=== PATIENT | female | born 1950 | race Caucasian/White ===

== ENCOUNTER 2021-10-16 20:03 | Emergency (ER) | payer MEDICARE, OTHER, SELFPAY ==
--- NOTE | 2021-10-16 20:08 | CTR_ITS ---
PROCEDURE INFORMATION: Exam: CT Cervical Spine Without Contrast Exam date and time: 10/16/2021 8:24 PM Age: 71 years old Clinical indication: Injury or trauma; Fall; Blunt trauma; Injury details: Patient tripped coming up some steps, loc is not certain; Prior surgery; Surgery date: 6+ months; Surgery type: Lens implants TECHNIQUE: Imaging protocol: Computed tomography of the cervical spine without contrast. Sagittal, oblique axial, and coronal reformatted images were created and reviewed. Radiation optimization: All CT scans at this facility use at least one of these dose optimization techniques: automated exposure control; mA and/or kV adjustment per patient size (includes targeted exams where dose is matched to clinical indication); or iterative reconstruction. COMPARISON: No relevant prior studies available. RADIATION DOSE METRICS: Total DLP (mGy-cm): 396.5 FINDINGS: Bones/joints: No evidence for an epidural hematoma. Vertebral body height is maintained. No subluxation. Bones are diffusely osteopenic. Straightening of the cervical spine. This may be due to positioning versus muscle spasm. No acute fracture. Discs/Spinal canal/Neural foramina: Multilevel degenerative changes of varying severity in the visualized spine. Mild spinal canal stenosis at C3-C4 through C6-C7. Multilevel foraminal stenosis of varying severity in the visualized spine. Lungs: Visualized lungs are clear. Vasculature: Atherosclerotic changes in the visualized arteries. Soft tissues: No soft tissue swelling. No radiopaque foreign body. CT/CT cervical spin wo con* [id number] IMPRESSION: 1. No acute fracture of the cervical spine. 2. Multilevel degenerative changes of varying severity in the visualized spine. 3. Mild spinal canal stenosis at C3-C4 through C6-C7. Multilevel foraminal stenosis of varying severity in the visualized spine. 4. Incidental/nonacute findings are listed in the report.
--- NOTE | 2021-10-16 20:08 | CTR_ITS ---
PROCEDURE INFORMATION: Exam: CT Head Without Contrast Exam date and time: 10/16/2021 8:20 PM Age: 71 years old Clinical indication: Injury or trauma; Fall; Blunt trauma (contusions or hematomas); Prior surgery; Surgery date: 6+ months; Surgery type: Lens implants TECHNIQUE: Imaging protocol: Computed tomography of the head without contrast. Sagittal and coronal reformatted images were created and reviewed. Radiation optimization: All CT scans at this facility use at least one of these dose optimization techniques: automated exposure control; mA and/or kV adjustment per patient size (includes targeted exams where dose is matched to clinical indication); or iterative reconstruction. COMPARISON: No relevant prior studies available. RADIATION DOSE METRICS: Total DLP (mGy-cm): 617.43 FINDINGS: Brain: No acute intracranial hemorrhage. No acute infarct. No intra-axial or extra-axial masses. Rich-white matter differentiation is preserved. No cerebral edema. No extra-axial fluid collections. No midline shift. No evidence for Chiari 1 malformation. Mild atrophy of the brain parenchyma. Mildly decreased attenuation in the deep white matter, consistent with mild chronic microangiopathic change. Right basal ganglia calcifications. Cerebral ventricles: No hydrocephalus. Paranasal sinuses: Visualized paranasal sinuses are clear. Mastoid air cells: Visualized mastoid air cells are clear. Orbital cavities: No acute abnormality in the visualized orbits. Bones/joints: No acute fracture. Soft tissues: No acute abnormality of the extracranial soft tissues. CT/CT head wo con* [id number] IMPRESSION: 1. No acute abnormality of the brain. 2. Mild atrophy of the brain parenchyma. 3. Mild chronic white matter microangiopathic change. 4. Incidental/nonacute findings are listed in the report.
[2021-10-16 20:10] VITALS: BP 121/76; PULSE 92; RESP 16; TEMP 36.3; O2SAT 94
--- NOTE | 2021-10-16 21:54 | W.ED.FALL ---
HPI - Fall General: Chief Complaint: Fall Stated Complaint: fall/right arm weakness & injury/vomiting Time Seen by Provider: 10/16/21 21:53 History of Present Illness: Ms. Milton is a 71-year-old lady without significant past medical history who presents to the emergency department due to fall. She reports that she was walking inside and does not recall exactly why she fell but thinks that she must of tripped. She fell forward and reached out with her right arm. She is unsure if she lost consciousness. She did have post fall vomiting and reported that she seemed confused/disoriented though this is improved. Currently only endorses arm pain. Intensity is moderate. Quality is aching and worse with movement. No other specific changes in health, exacerbating, or alleviating factors identified. Onset (ago): minute(s) Fall from: standing Place fall occurred: home Loss of consciousness: Unsure Prolonged down time: no Severity: moderate Quality: aching Review of Systems General: Reports: 10 or more systems reviewed and unremarkable except in HPI and below PFSH ED PFSH: Medical History No significant past medical history Surgical History No significant past surgical history Family History Denies family history of Clotting disorder Bleeding disorder Social History Smoking and tobacco status: never smoked Physical Exam Const: COMMON NORMALS: alert GENERAL APPEARANCE: cooperative and well developed HENMT: COMMON NORMALS: normocephalic and atraumatic HEAD & SCALP: normocephalic and atraumatic OTHER: No yousif signs or raccoon eyes. No hemotympanum. No otorrhea or rhinorrhea. Jaw alignment normal. Dentition baseline. No obvious bony step-offs. No septal hematoma. No evidence of ocular entrapment. Eye: COMMON NORMALS: conjunctivae normal CONJUNCTIVA: Yes conjunctivae normal SCLERA: sclerae normal Neck/C-Spine: COMMON NORMALS: supple GENERAL: Yes trachea midline Resp: COMMON NORMALS: normal respiratory effort EFFORT & INSPECTION: Yes able to speak in complete sentences Cardio: COMMON NORMALS: regular rate and regular rhythm RATE: regular rate RHYTHM: regular rhythm GI: COMMON NORMALS: Soft to palpation PALPATION: Yes Soft to palpation, No Tenderness to palpation present (GI), No Guarding due to palpation present (GI) and No Rigid due to palpation Back/Pelvis: COMMON NORMALS: no thoracic nor lumbar tenderness Extremity: NARRATIVE EXTREMITY EXAM: Right elbow held approximately 90 degrees flexion localized ecchymosis and swelling. Tenderness to palpation for distal CMS intact. GENERAL: Yes normal exam except as noted and No edema Neuro: COMMON NORMALS: moves all extremities SENSORIUM/ORIENTATION: Yes alert and No Orientation impaired Psych: COMMON NORMALS: mental status grossly normal and Normal thought process present THOUGHT PROCESS: Normal thought process present Skin: NARRATIVE SKIN EXAM: Irregular skin tear with L-shaped roughly 4 cm x 2 cm to right posterior hand. No involvement overlying joints. Bleeding controlled. Distal CMS intact. Procedures Laceration Laceration 1: Site: hand Side (If applicable): right Size (cm): 4 Description: irregular (skin tear roughly L shaped) Depth: simple, single layer Pre-repair: wound explored, irrigated extensively and deep structures intact Skin layer closed with: other (steri strips) Course ED course: - Patient was seen and evaluated by me at bedside - Patient placed on cardiac monitors, IV access obtained - Initial evaluation notable for exam as above. Head to toe exam performed. - Labs and xrays personally interpreted by me. EKG notable for sinus rhythm with nonspecific ST segment abnormalities. No STEMI. - Patient reports up-to-date Tdap - Imaging notable for negative head and neck CT for acute traumatic injury or obvious cause of fall. Right radial head fracture with displacement and possible ulna coronoid process fracture. - X-rays sent to orthopedic on-call for review, given injury we both agree that attempted closed reduction is not likely to be fruitful or indicated in this situation. Plan to place patient in sling and have outpatient orthopedic follow-up. - Upon serial reexamination after treatment the patient was improved. Given pharmacy is closed I will dispense overnight doses of oxycodone 3 x 5 mg to be taken every 4 hours as needed - Based on patient history, evaluation, and testing as interpreted the most likely cause of the patient's condition is fall with injuries of seizure and radial head fracture with displacement. - The results of ED evaluation were discussed with the patient including prescriptions and/or symptomatic cares (if applicable) including appropriate and responsible use, followup plan, and return precautions. The patient verbalized understanding and felt safe for discharge. - Patient discharged in satisfactory condition. Note: Click bubbles or prepopulated salomon in note writing are used for assistance with data collection and billing and are inherently more limited than narrative and other text portions of this note. Please use narrative for additional clinical history and defer to narrative/free test for any case of contradictory information. If information appears in only free text or click bubble it should be considered present or absent as reported. Please contact note rfp writer for clarifications of clinical information or contradictory information. MDM is a brief summary, contradictory or erroneous seeming information should be clarified and full note should be reviewed. Vital Signs: Vital signs: Vital Signs Temperature 97.3 F L 10/16/21 20:10 Pulse Rate 77 10/17/21 00:35 Respiratory Rate 16 10/17/21 00:35 Blood Pressure 101/67 10/17/21 00:35 Pulse Oximetry 95 10/17/21 00:35 MDM - Fall Medical Decision Making 71-year-old lady without significant past medical history presenting due to fall of somewhat unclear circumstances. Patient found to have suspected nondisplaced ulna fracture and displaced radial head fracture. Discussed with orthopedics who reviewed x-rays. Plan to have outpatient management with likely operative intervention. Skin tear repaired with Steri-Strips. Satisfactory for outpatient management. Medical Records I reviewed the patient's medical records. Lab Data I reviewed the patient's lab results. Radiology Impressions Cervical Spine CT 10/16/21 20:08 IMPRESSION: 1. No acute fracture of the cervical spine. 2. Multilevel degenerative changes of varying severity in the visualized spine. 3. Mild spinal canal stenosis at C3-C4 through C6-C7. Multilevel foraminal stenosis of varying severity in the visualized spine. 4. Incidental/nonacute findings are listed in the report. Head CT 10/16/21 20:08 IMPRESSION: 1. No acute abnormality of the brain. 2. Mild atrophy of the brain parenchyma. 3. Mild chronic white matter microangiopathic change. 4. Incidental/nonacute findings are listed in the report. Elbow X-Ray 10/16/21 22:08 IMPRESSION: 1. Subtle cortical irregularities at the radial head and at the coronoid process of the ulna suspicious for nondisplaced fractures. 2. Moderate elbow joint effusion. 3. Mild soft tissue swelling posterior to the distal humerus. 4. Incidental/nonacute findings are listed in the report. Forearm X-Ray 10/16/21 22:08 IMPRESSION: 1. There is a fracture of the right radial head with 90 degrees of lateral angulation of the radial head with respect to the neck of the radius. 2. Mild soft tissue swelling posterior to the distal humerus. 3. Moderate elbow joint effusion. Hand X-Ray 10/16/21 22:08 IMPRESSION: 1. No acute fracture of the right hand. Followup imaging recommended in 7-14 days if clinical concern for fracture persists. 2. Incidental/nonacute findings are listed in the report. Discharge Plan Discharge Patient Disposition: Home Clinical Impression: Fall, Closed fracture of radial head, Skin tear Condition: Stable Prescriptions: New ondansetron 4 mg tablet,disintegrating 4 mg PO Q8H PRN (Reason: nausea and vomiting) Qty: 15 0RF oxycodone 5 mg tablet 5 mg PO Q4H PRN (Reason: pain) Qty: 30 0RF polyethylene glycol 3350 [Miralax] 17 gram powder in packet 17 g PO BID Qty: 30 0RF No Action hydrocodone-acetaminophen 5-325 mg tablet 1 tab PO Q4H PRN (Reason: pain) 7 Days Qty: 30 0RF ondansetron HCl 4 mg tablet 4 mg PO Q8H PRN (Reason: nausea and vomiting) 5 Days Qty: 14 0RF hydrocodone-acetaminophen 5-325 mg tablet 1 tab PO Q4H Qty: 30 0RF Discharge Orders: Discharge ED (Routine); Ordered 10/17/21 Ordered By: Jamey Miller Referrals: Sage Pierre MD [Primary Care Provider] - Discharge Diet: Usual diet Discharge Activity: Limit activity as instructed Activity Restrictions/Additional Instructions: Thank you for visiting the emergency department. You were seen and evaluated for fall with elbow injury. You are found to have a skin tear which was repaired with Steri-Strips as well as a radial head fracture. The radial head fracture requires follow-up with orthopedics. I will message case management however please call if you do not hear from them by Wednesday afternoon. Please wear sling and limit range of motion until follow-up. Please keep skin tear area clean and dry. You will be given a prescription for pain medication, you may take Tylenol in addition of this. Opioids can cause difficulty with balance and cause sedation, please be cautious regarding this. Additionally a common side effect is constipation. Please follow-up with your primary care provider. Return to the emergency department for worsening symptoms or anything else that you are concerned about and feel needs emergency department evaluation. Coding Level of Care Code ED [employer]ician for [facility] [employer]
--- NOTE | 2021-10-16 22:08 | XRR_ITS ---
PROCEDURE INFORMATION: Exam: XR Right Elbow Exam date and time: 10/16/2021 10:15 PM Age: 71 years old Clinical indication: Pain; Lower or forearm; Patient HX: Lateral elbow is with forearm films. Unable to move them right away; Additional info: Fall TECHNIQUE: Imaging protocol: Radiologic exam of the Right elbow. Views: 1 or 2 views. COMPARISON: No relevant prior studies available. FINDINGS: Bones/joints: Moderate elbow joint effusion with displacement of the anterior and posterior fat pads. Subtle cortical irregularities at the radial head and at the coronoid process of the ulna suspicious for nondisplaced fractures. No dislocation. Bones are diffusely osteopenic. Soft tissues: Mild soft tissue swelling posterior to the distal humerus. No radiopaque foreign body. XR/XR elbow RT 2V [id number] IMPRESSION: 1. Subtle cortical irregularities at the radial head and at the coronoid process of the ulna suspicious for nondisplaced fractures. 2. Moderate elbow joint effusion. 3. Mild soft tissue swelling posterior to the distal humerus. 4. Incidental/nonacute findings are listed in the report.
--- NOTE | 2021-10-16 22:08 | ECG_ITS ---
[facility] Test Date: 2021-10-16 Pat Name: Iza Milton Department: Room: Gender: Female Public Health Service Officer: : 1950 Requested By: Jamey Miller Order Number: [id number] Naveed MD: Rogelio Brewster M.D. Measurements Intervals [place] Rate: 83 P: 31 WY: 157 QRS: -13 QRSD: 69 T: 6 QT: 356 QTc: 421 Interpretive Statements SINUS RHYTHM POSSIBLE RIGHT VENTRICULAR CONDUCTION DELAY [RSR (QR) IN V1/V2] No previous ECG available for comparison Electronically Signed On 10-16-2021 22:49:47 CDT by Rogelio Brewster M.D. [id number]
--- NOTE | 2021-10-16 22:08 | XRR_ITS ---
PROCEDURE INFORMATION: Exam: XR Right Forearm Exam date and time: 10/16/2021 10:15 PM Age: 71 years old Clinical indication: Injury or trauma; Fall; Swelling (edema); Arm, lower; Right TECHNIQUE: Imaging protocol: Radiologic exam of the Right forearm. Views: 2 views. COMPARISON: No relevant prior studies available. FINDINGS: Bones/joints: There is a fracture of the right radial head with 90 degrees of lateral angulation of the radial head with respect to the neck of the radius. No dislocation. Bones are diffusely osteopenic. Moderate elbow joint effusion with displacement of the anterior and posterior fat pads. Soft tissues: Mild soft tissue swelling posterior to the distal humerus. No radiopaque foreign body. XR/XR forearm RT 2V [id number] IMPRESSION: 1. There is a fracture of the right radial head with 90 degrees of lateral angulation of the radial head with respect to the neck of the radius. 2. Mild soft tissue swelling posterior to the distal humerus. 3. Moderate elbow joint effusion.
--- NOTE | 2021-10-16 22:08 | XRR_ITS ---
PROCEDURE INFORMATION: Exam: XR Right Hand Exam date and time: 10/16/2021 10:15 PM Age: 71 years old Clinical indication: Pain; Hand; Right; Additional info: Fall TECHNIQUE: Imaging protocol: Radiologic exam of the Right hand. Views: 3 or more views. COMPARISON: No relevant prior studies available. FINDINGS: Bones/joints: No acute fracture. No dislocation. Bones are diffusely osteopenic. Mild degenerative changes in the wrist and hand. Soft tissues: No soft tissue swelling. No radiopaque foreign body. XR/XR hand RT min 3V* [id number] IMPRESSION: 1. No acute fracture of the right hand. Followup imaging recommended in 7-14 days if clinical concern for fracture persists. 2. Incidental/nonacute findings are listed in the report.
--- NOTE | 2021-10-16 22:15 | PC.NURSE ---
71 yo female presents after a fall at home. she states she was walking in the door and not sure what caused her to fall but she stumbled and landed on her right arm. she denies dizziness or weakness. pain to right forearm/wrist. distal pulses 3+.
[2021-10-16 22:31] VITALS: RESP 18
[2021-10-16] MEDS: morphine 4 mg/mL SDV 1 mL IM (22:31)
--- NOTE | 2021-10-17 00:15 | PC.NURSE ---
wound on right hand dressed with non adherent dressing and roller bandage.
[2021-10-17] MEDS: ondansetron 2 mg/ML SDV 2 mL 4 MG IM (00:17)
[2021-10-17 00:24] VITALS: RESP 18
[2021-10-17] MEDS: oxyCODONE 5 mg IR Tab/Cap 15 MG PO (00:24)
[2021-10-17 00:35] VITALS: BP 101/67; PULSE 77; RESP 16; O2SAT 95
--- NOTE | 2021-10-23 18:12 | DCPLANNER ---
senior consulting manager sent patients information to the front office staff at ortho. Patient had a follow up appointment scheduled for 10.21.[address] Flores. Patient did attend appointment.
== END 2021-10-17 00:38 | disposition home or self-care (01) ==
PROVIDERS: Emergency Provider Emergency Medicine; PCP Family Medicine
DX: S52.121A Displaced fracture of head of right radius, initial encounter for closed fracture (principal); S61.411A Laceration without foreign body of right hand, initial encounter; W18.30XA Fall on same level, unspecified, initial encounter; R11.10 Vomiting, unspecified
CPT/HCPCS: 12002; 70450; 72125; 73070; 73090; 73130; 93005; 96372; 99284; A6446; J2270; J2405

== ENCOUNTER → 2021-10-21 07:56 | Outpatient (BNVA) | payer MEDICARE, OTHER, SELFPAY | PROVIDERS: PCP Family Medicine; Visit Provider Orthopaedic Surgery | DX: S52.121A Displaced fracture of head of right radius, initial encounter for closed fracture (principal); W19.XXXA Unspecified fall, initial encounter | CPT/HCPCS: 73080; 99203 ==

== ENCOUNTER 2021-10-23 09:15 | Day surgery (SDC) | payer MEDICARE, OTHER, SELFPAY ==
[2021-10-22 11:10] VITALS: BMI 23.3
[2021-10-23] VITALS (8 sets, daily range): BP systolic 118–136; BP diastolic 54–80; PULSE 73–83; RESP 13–21; TEMP 35.8–36.8; O2SAT 94–100
--- NOTE | 2021-10-23 | SCC_ITS ---
Procedure done: Open treatment fracture right radial head with radial head replacement 26.2 seconds of fluoroscopic guidance, for a cumulative dose of 0.60 mGy, was provided to Dr. Flores by the radiology department. C-arm images of the RIGHT elbow were saved for the patient's permanent record. [facility]
--- NOTE | 2021-10-23 | XR_ITS ---
WS: [id number] Right elbow, C-arm fluoroscopy, 10/23/2021 Clinical Data: Radial head replacement Comparison: Right elbow, 10/21/2021. Findings: Dr. Flores inserted a right radial head prosthesis. XR/XR elbow RT min 3V* [id number] Impression: Right radial head prosthesis.
[2021-10-23] MEDS: sodium chloride 0.9% 1,000 ML 30 ML IV (09:53)
--- NOTE | 2021-10-23 10:01 | ANES.PREANE2 ---
Pre-Anesthetic Assessment Height/Weight: Height 1.57 m Weight 58.06 kg Temp Pulse Resp BP Pulse Ox 98.3 F 81 17 123/54 98 10/23/21 09:33 10/23/21 09:33 10/23/21 09:33 10/23/21 09:33 10/23/21 09:33 Preop Diagnosis: FractureRight radial head Operation Date: 10/23/21 11:00 Proposed Procedures p Right Radial head arthroplasty 10366,S52.123A(Right) - Duran Flores MD Familial anesthetic complications: None Was Beta Merced taken within 24 hours: N/A Was Clonidine taken within 24 hours: N/A Last intake: Intake Last Liquid Date 10/22/21 Last Liquid Time 21:00 Last Solid Date 10/22/21 Last Solid Time 18:00 Social Tobacco (occassional) and No alcohol Exam alert, oriented x 3, clear to auscultation bilaterally and regular rate & rhythm Airway Mallampati: Class II Dentition: false Anesthetic Plan ASA status: 1 Anesthesia: General and Regional (specify below) Risk of > 500 ml blood loss (7ml/kg in children): No Medications/Allergies Home Medications Medication Instructions Recorded Confirmed Last Taken Type ondansetron 4 mg disintegrating 4 mg PO Q8H PRN #15 tab 10/17/21 10/22/21 Unknown Rx tablet oxycodone 5 mg tablet 5 mg PO Q4H PRN #30 tab 10/17/21 10/22/21 Unknown Rx polyethylene glycol 3350 17 gram 17 g PO BID #30 ea 10/17/21 10/22/21 Unknown Rx oral powder packet (Miralax) hydrocodone 5 mg-acetaminophen 325 1 tab PO Q4H PRN 7 Days #30 tab 10/21/21 10/23/21 10/22/21 21:00 Rx mg tablet ondansetron HCl 4 mg tablet 4 mg PO Q8H PRN 5 Days #14 tab 10/21/21 10/22/21 Unknown Rx Allergies Allergy/AdvReac Type Severity Reaction Status Date / Time naproxen [From Aleve] Allergy Unknown Verified 10/23/21 09:34 Current Medications Generic Name Dose Route Start Last Admin Trade Name Freq PRN Reason Stop Dose Admin Sodium Chloride 1,000 mls @ 30 mls/hr 10/23/21 09:45 10/23/21 09:53 Sodium Chloride 0.9% IV 10/24/21 09:44 30 mls/hr .Q24H BONY Administration PFSH Anesthesia Social History Smoking and tobacco status: never smoked Data Anesthesia Cardiac Studies: No Data to Display
--- NOTE | 2021-10-23 10:42 | SUR.PREOP ---
1025-time out was completed at bedside with Trenton Isaac RN and patient. Axillary block was performed on right arm, patient tolerated well.
--- NOTE | 2021-10-23 10:44 | ANES.PROC ---
Anesthesia Procedures Procedure/Date: 10/23/21 Nerve Block ^: Nerve Block 1: Main Anesthesia: general anesthesia Time Out Performed: Yes Consent: requested by attending/covering physician, from patient, risks and benefits reviewed and patient agrees to proceed Nerve block location: axillary (R) Anesthesia monitors applied: pulse oximetry, EKG, BP cuff and oxygen Nerve block position: supine Anesthetic Used: ropivicaine 0.5% (30) and with decadron (4 mg) Ultrasound used to: recognize landmarks and visualize and ID brachial plexus Nerve Stimulator Used?: No Interscalene/Femoral BLK: 4 stimuplex 21 g needle used for position and inplane approach, visualize local anesthetic spread and no vascular puncture identified Injection: neg aspiration of heme Patient Tolerated Procedure: well and no complications Complications: none
--- NOTE | 2021-10-23 11:17 | W.PM.OPSUD ---
Surgery/Procedure H&P Update DATE OF PROCEDURE: October 23, 2021 DATE H&P PERFORMED: 10/21/21 H&P UPDATE INFORMATION: I have reviewed H&P completed within last 30 days PREOP DIAGNOSIS: FractureRight radial head PLANNED PROCEDURE: Operation Date: 10/23/21 11:00 Proposed Procedures p Right Radial head arthroplasty 76529,S52.123A(Right) - Duran Flores MD
[2021-10-23] MEDS: ceFAZolin 2,000 MG in sodium chloride 0.9% (plus) 50 ML 100 MG IV (11:33)
[2021-10-23] MEDS: tobramycin 40 mg/mL SDV 2mL 160 MG (12:09)
--- NOTE | 2021-10-23 12:54 | PM.OP ---
Operative Report Date of procedure: October 23, 2021 Pre-op diagnosis: Preop Diagnosis Fracture Right radial head Post-op diagnosis: same Procedure done: Open treatment fracture right radial head with radial head replacement Implants: Jessa Evolve 22m radial head, standard neck length Specimens removed/disposition: Comminuted fracture radial head removed Pathology: none sent Surgeon: Duran Flores Anesthesia: General Estimated blood loss (mL): 5 Tourniquet time (min): 38 Findings: The patient had a comminuted fracture of the right radial head. Intraoperative examination under fluoroscopy revealed instability to valgus stress. No instability was noted to varus stress. Condition: stable Disposition: PACU Procedure: The patient was taken to the operating room and given 2 g of Ancef. The elbow was initially examined under anesthesia. She lacked approximately 30 degrees short of full extension. Valgus stress test with the knee in maximal extension allowed revealed valgus instability. Varus stress revealed no laxity. We chose to proceed with radial head replacement to restore valgus instability. The arm was then prepped and draped in the usual fashion. A 5 cm long lateral incision was made beginning over the lateral epicondyle extending distally in the direction of Tawanna's tubercle. Dissection was carried down through subcutaneous fat to the extensor musculature. The extensor digitorum commonness origin was identified and a split carried down from the medial epicondyle through the muscle approximately 3 cm soft tissues were also elevated anteriorly off of the lateral epicondyle. The rotated and displaced fracture of the radial head was identified and removed from the wound. This fragment involves approximately 60% of the radial head. A smaller loose medial head fragment was identified more medially and removed with a hemostat. Dissection was accomplished slightly distal dividing the annular ligament. At that point the proximal radius could be displaced laterally to allow sufficient space for hand broaching. A neck cut was made with the oscillating saw creating a smooth surface for the later implant. Sequential broaching was accomplished up to 6.5mm with ease. The femoral head on the back table was sized to 22 mm. A trial reduction with a 22 mm head, standard neck length and 6.5 mm stem provided excellent stability throughout motion. Intraoperative images were obtained revealing a congruent ulnohumeral articulation and stability of the radial head throughout motion. Trial implants were removed. The wound was irrigated with antibiotic solution. The final involved radial head and stem were placed. The annular ligament was reapproximated with 0 Vicryl. The split in the EDC tendon and deep capsule reapproximated with 0 Vicryl. Subcutaneous tissues were closed with 2-0 Vicryl. The friable skin was closed with ephraim. Xeroflo gauze 4 x 4's compressive cast padding a posterior splint and Jorge Alberto wrap were applied. Patient was taken recovery room in stable condition.
--- NOTE | 2021-10-23 13:08 | SUR.PHASEI ---
patient is awake. nasal cannula in place at 3L. sats at 100%. patient states no pain, right arm in sling, fingers to right hand warm and pink. dressing to right arm dry and intact.
--- NOTE | 2021-10-23 13:10 | SUR.PHASEI ---
patient care being assumed by mitch song
--- NOTE | 2021-10-23 16:37 | ANE.PACU2 ---
Inpatient post-anesthesia follow up: Airway intact: Yes Vital signs: Temperature 98.1 F Pulse Rate 75 Respiratory Rate 17 Blood Pressure 136/65 Pulse Oximetry 98 Oxygen Delivery Me thod Room Air Oxygen Flow Rate 3 Fraction of Inspir ed Oxygen Hydration adequate: Yes Nausea and vomiting: No Pain level: 1 Mental status: Baseline
== END 2021-10-23 14:35 | disposition home or self-care (01) ==
PROVIDERS: PCP Family Medicine; Visit Provider Orthopaedic Surgery
PROC: (CPT 24666; principal; 2021-10-23 10:50)
DX: S52.121A Displaced fracture of head of right radius, initial encounter for closed fracture (principal); X58.XXXA Exposure to other specified factors, initial encounter
CPT/HCPCS: 24666; 73080; 76000; C1776; J1100; J2405; J2704; J2795; J3260; J7030

== ENCOUNTER → 2021-11-05 12:49 | Outpatient (BNVA) | payer MEDICARE, OTHER, SELFPAY | PROVIDERS: PCP Family Medicine; Visit Provider Nurse Practitioner Family | DX: Z98.890 Other specified postprocedural states (principal); S52.121A Displaced fracture of head of right radius, initial encounter for closed fracture; W19.XXXA Unspecified fall, initial encounter | CPT/HCPCS: 73080; 99024 ==

== ENCOUNTER 2021-11-05 15:52 | Outpatient (CLI) | payer MEDICARE, OTHER, SELFPAY | END 2021-11-05 15:53 | disposition home or self-care (01) | LOC: SPT 15:53 | PROVIDERS: PCP Family Medicine; Visit Provider Nurse Practitioner Family | DX: Z47.89 Encounter for other orthopedic aftercare (principal) | CPT/HCPCS: 97760; L3761 ==

== ENCOUNTER 2021-11-11 06:00 | Outpatient (RCR) | payer MEDICARE, OTHER, SELFPAY | END 2021-11-16 23:59 | disposition home or self-care (01) | LOC: SOT 06:00 | PROVIDERS: PCP Family Medicine; Referring Provider Nurse Practitioner Family; Visit Provider Nurse Practitioner Family | DX: S52.121D Displaced fracture of head of right radius, subsequent encounter for closed fracture with routine healing (principal) | CPT/HCPCS: 97110; 97140; 97166 ==

== ENCOUNTER 2021-11-17 06:00 | Outpatient (RCR) | payer MEDICARE, OTHER, SELFPAY | END 2021-12-17 23:59 | disposition home or self-care (01) | LOC: SOT 06:00 | PROVIDERS: PCP Family Medicine; Referring Provider Nurse Practitioner Family; Visit Provider Nurse Practitioner Family | DX: S52.121D Displaced fracture of head of right radius, subsequent encounter for closed fracture with routine healing (principal); X58.XXXD Exposure to other specified factors, subsequent encounter | CPT/HCPCS: 97018; 97022; 97035; 97110; 97140 ==

== ENCOUNTER → 2021-12-03 10:13 | Outpatient (BNVA) | payer MEDICARE, OTHER, SELFPAY | PROVIDERS: PCP Family Medicine; Visit Provider Nurse Practitioner Family | DX: S59.901A Unspecified injury of right elbow, initial encounter (principal); M25.531 Pain in right wrist; X58.XXXA Exposure to other specified factors, initial encounter; M19.031 Primary osteoarthritis, right wrist; Z98.890 Other specified postprocedural states | CPT/HCPCS: 73080; 73110; 99024 ==

== ENCOUNTER → 2022-01-15 09:56 | Outpatient (BNVA) | payer MEDICARE, OTHER, SELFPAY | PROVIDERS: PCP Family Medicine; Visit Provider Nurse Practitioner Family | DX: Z98.890 Other specified postprocedural states (principal) | CPT/HCPCS: 73080; 99024; 99213 ==